=== PATIENT | female | born 1985 | race Caucasian/White ===

== ENCOUNTER 2016-08-02 13:58 | Emergency (ER) | payer OTHER ==
--- NOTE | 2016-08-02 14:12 | ED NURSING NOTES ---
Clinical Report - Nurses [facility] [address] [place] [address] 08/02/2016 13:59 Patient: GA RAMACHANDRAN TRIAGE Triage time 1405. Acuity: LEVEL 4. Chief Complaint: SKIN RASH and TENDER AREA and INSECT BITE 14:05. --14:12 Yari Smith R.N. 14:05 08/02/16. BP: 132/91. HR: 102. RR: 20. O2 saturation: 97%. Temp: 98.1 F. Pain level now: 10/15. --14:12 Yari Smith R.N. Chief Complaint: right foot swelling and redness- states possible spider bite. --14:15 Yari Smith R.N. Weight: 72.5 kg stated. Height/Length: 66 inches Per Patient. BMI: 25.8. --14:10 Yari Smith R.N. Medications None. --14:10 Yari Smith R.N. Allergies Hydrocodone. (ghi upset) --14:10 Yari Smith R.N. History Arrived by private vehicle. Historian: patient. Accompanied by sister. No primary care physician. Reported as located on the right foot. This started last night. It is described as burning and painful. PAST MEDICAL HX: Immunizations: up-to-date. SOCIAL HX: Heavy tobacco smoker (cigarette)- less than 1 pack per day. History of drug use: methamphetamines. No alcohol use. --14:12 Yari Smith R.N. PROBLEMS: Anxiety Reaction. TMJ Syndrome. Laryngitis. Tonsillitis. Peritonsillar Abscess. Strep Throat. --14:10 Yari Smith R.N. ADDITIONAL SURGERIES: Laparoscopy. --14:10 Yari Smith R.N. Interventions ID band on patient. To treatment room. --14:12 Yari Smith R.N. PHYSICAL ASSESSMENT Patient gowned. GENERAL / NEURO / PSYCH: Alert. Appears in pain. Oriented X 4. HEENT: Mucous membranes are pink. RESPIRATORY: Respirations not labored. CVS: Capillary refill less than 2 seconds. SKIN: Skin tenderness present. Swelling present. Increased warmth present. Erythema present. No drainage. --14:14 Yari Smith R.N. NURSING PROGRESS NOTES 14:05. Reassurance given. Patient identifiers checked. Call light placed in reach. Side rails up. Bed placed in lowest position. Patient ready for evaluation- chart flagged and notification provided. --14:13 Yari Smith R.N. 14:15. Wound cleansed with water and Hibiclens. Applied clean dressing. Secured with tape and kerlix. --14:29 Yari Smith R.N. 14:15 08/02/2016 Percocet (Oxycodone-Acetaminophen) PO 5/325 mg Tablets 1 tab given. Allergies verified, confirmed 5 rights and sedative warning given to the patient. --14:30 Yari Smith R.N. 14:15 08/02/2016 Bactrim DS (Sulfamethoxazole-TMP DS) PO Tablets 1 tab given. Allergies verified and confirmed 5 rights. --14:30 Yari Smith R.N. 14:15 08/02/2016 Keflex (Cephalexin) PO Tablets 500 mg given. Allergies verified and confirmed 5 rights. --14:30 Yari Smith R.N. DISPOSITION / DISCHARGE 14:26. Condition at departure: stable. No learning barriers present. Discharge instructions provided and reviewed with the patient. Reviewed medication(s) (keflex, percocet, bactrim). Patient verbalized understanding. Written instructions provided in [place]. The patient was discharged home and accompanied by family. She left the Emergency Department on crutches and via private vehicle. Driving (sister). --14:33 Yari Smith R.N. 14:26 08/02/16. BP: 128/84. HR: 92. RR: 20. O2 saturation: 98% on room air. Temp: deferred. Pain level now: 810. --14:33 Yari Smith R.N. Locked/Released at 08/02/2016 14:33 by LuisYari R.N.
--- NOTE | 2016-08-02 14:12 | ED CLINICAL REPORT ---
Clinical Report - Physicians/Mid Levels [facility] [address] [place] [address] 08/02/2016 13:59 Patient: GA RAMACHANDRAN Time Seen: 14:10 Aug 02 2016. Arrived- By private vehicle. Historian- patient. HISTORY OF PRESENT ILLNESS Chief Complaint: SKIN RASH. This started just prior to arrival and is still present. It is described as painful. It has been located on the right lower extremity. A possible cause has been identified (spider bite?). (patient reports possibly stepping on something yesterday, and having swelling today. Denies fevers or chills. Denies any direct trauma. Reports had a Tetanus immunization within the last 10 years. Patient smokes meth, occasionally injects into her upper extremity. Denies injecting to the site. Denies history of MRSA.). REVIEW OF SYSTEMS No fever, chills, cough, hoarseness or nausea. All systems otherwise negative, except as recorded above. PAST HISTORY Tetanus immunization status is up-to-date. SOCIAL HISTORY Current every day heavy tobacco smoker. History of drug use: methamphetamines. No alcohol use. ADDITIONAL NOTES The nursing notes have been reviewed. PHYSICAL EXAM Vital Signs: 08/02/2016 14:05 BP: 132/91. HR: 102. RR: 20. O2 saturation: 97%. Temp: 98.1 F. Pain level now: 8/10. Neck: Neck supple. CVS: Normal heart rate and rhythm. Respiratory: No respiratory distress. Breath sounds normal. Skin: Normal skin color. Erythema (r. dorsal foot 4 by 3 area of erythema/ warmth, no fluctulance.). Tender indurated area. Cellulitis. Extremities: Soft tissue tenderness present (r. dorsal foot, good distal sensation, good dorsalis pedal pulse.). Neuro: Oriented X 3. PROGRESS AND PROCEDURES Course of Care: Patient was signs of erythema on the left foot. Patient with tetanus immunization is up-to-date. Afebrile. No palpable abscess. Good distal sensation. No trauma history. Incidental sometimes for hours. Patient is stable. The patient's symptoms are unchanged. Patient/family counseled. Disposition: Discharged. CLINICAL IMPRESSION Cellulitis of the right foot. INSTRUCTIONS (elevate foot Warm packs start antibiotics). Warnings: Further evaluation is necessary (for wound eval if no improvement in 3-4 days). It is very important to follow up with a physician. Prescription Medications: Bactrim DS 800 mg / 160 mg: take 1 tablet orally every 12 hours for 10 days. No refill. Substitution is permissible. Keflex 500 mg: take 1 capsule orally every 8 hours for 10 days. No refill. Substitution is permissible. Percocet 5 mg/325 mg: take 1 tablet orally every 6 hours as needed for pain. Dispense five (5). No refill. Follow-up: Follow up with your doctor in three days. (Electronically signed by Cass Wray P.A.-C 08/02/2016 14:38)
--- NOTE | 2016-08-02 14:12 | ED CLINICAL REPORT ---
Clinical Report - Physicians/Mid Levels [facility] [address] [place] [address] 08/02/2016 13:59 Patient: GA RAMACHANDRAN Time Seen: 14:10 Aug 02 2016. Arrived- By private vehicle. Historian- patient. HISTORY OF PRESENT ILLNESS Chief Complaint: SKIN RASH. This started just prior to arrival and is still present. It is described as painful. It has been located on the right lower extremity. A possible cause has been identified (spider bite?). (patient reports possibly stepping on something yesterday, and having swelling today. Denies fevers or chills. Denies any direct trauma. Reports had a Tetanus immunization within the last 10 years. Patient smokes meth, occasionally injects into her upper extremity. Denies injecting to the site. Denies history of MRSA.). REVIEW OF SYSTEMS No fever, chills, cough, hoarseness or nausea. All systems otherwise negative, except as recorded above. PAST HISTORY Tetanus immunization status is up-to-date. SOCIAL HISTORY Current every day heavy tobacco smoker. History of drug use: methamphetamines. No alcohol use. ADDITIONAL NOTES The nursing notes have been reviewed. PHYSICAL EXAM Vital Signs: 08/02/2016 14:05 BP: 132/91. HR: 102. RR: 20. O2 saturation: 97%. Temp: 98.1 F. Pain level now: 8/10. Neck: Neck supple. CVS: Normal heart rate and rhythm. Respiratory: No respiratory distress. Breath sounds normal. Skin: Normal skin color. Erythema (r. dorsal foot 4 by 3 area of erythema/ warmth, no fluctulance.). Tender indurated area. Cellulitis. Extremities: Soft tissue tenderness present (r. dorsal foot, good distal sensation, good dorsalis pedal pulse.). Neuro: Oriented X 3. PROGRESS AND PROCEDURES Course of Care: Patient was signs of erythema on the left foot. Patient with tetanus immunization is up-to-date. Afebrile. No palpable abscess. Good distal sensation. No trauma history. Incidental sometimes for hours. Patient is stable. The patient's symptoms are unchanged. Patient/family counseled. Disposition: Discharged. CLINICAL IMPRESSION Cellulitis of the right foot. INSTRUCTIONS (elevate foot Warm packs start antibiotics). Warnings: Further evaluation is necessary (for wound eval if no improvement in 3-4 days). It is very important to follow up with a physician. Prescription Medications: Bactrim DS 800 mg / 160 mg: take 1 tablet orally every 12 hours for 10 days. No refill. Substitution is permissible. Keflex 500 mg: take 1 capsule orally every 8 hours for 10 days. No refill. Substitution is permissible. Percocet 5 mg/325 mg: take 1 tablet orally every 6 hours as needed for pain. Dispense five (5). No refill. Follow-up: Follow up with your doctor in three days. (Electronically signed by Cass Wray P.A.-C 08/02/2016 14:38)
--- NOTE | 2016-08-02 14:12 | ED ORDER SUMMARY ---
..... Patient: GA RAMACHANDRAN OrderSheet [facility] VisitID: [id number] [address] [place] [address] 31y, F Registration Date/Time: 08/02/2016 ORDER SHEET Weight: 72.5 kg (stated) Allergies: Hydrocodone GENERAL ORDERS: MEDICATION ORDERS: Percocet PO 5/325 mg (HIGH ALERT MEDICATION, NOW) (14:11 08/02/2016 EKoroleioana P.A.-C) (Ack 14:14 DDean R.N.) (14:30 DDean R.N.) Bactrim DS PO (Tablet 800-160 mg) 1 tab (NOW) (14:11 08/02/2016 Suzanneleioana P.A.-C) (Ack 14:14 DDean R.N.) (14:30 DDean R.N.) Keflex PO 500 mg (NOW) (14:11 08/02/2016 Suzanneleioana P.A.-C) (Ack 14:14 DDean R.N.) (14:30 DDean R.N.) IV FLUIDS: ORDER SHEET NOTES: [Electronically signed by Yari Smith R.N. (14:33 08/02/2016)] [Electronically signed by Cass Wray PZeeshanA.-C (14:38 08/02/2016)] [Electronically locked/signed by Yari Smith R.N. (14:33 08/02/2016)]
--- NOTE | 2016-08-02 14:12 | ED NURSING NOTES ---
Clinical Report - Nurses [facility] [address] [place] [address] 08/02/2016 13:59 Patient: GA RAMACHANDRAN TRIAGE Triage time 1405. Acuity: LEVEL 4. Chief Complaint: SKIN RASH and TENDER AREA and INSECT BITE 14:05. --14:12 Yari Smith R.N. 14:05 08/02/16. BP: 132/91. HR: 102. RR: 20. O2 saturation: 97%. Temp: 98.1 F. Pain level now: 10/15. --14:12 Yari Smith R.N. Chief Complaint: right foot swelling and redness- states possible spider bite. --14:15 Yari Smith R.N. Weight: 72.5 kg stated. Height/Length: 66 inches Per Patient. BMI: 25.8. --14:10 Yari Smith R.N. Medications None. --14:10 Yari Smith R.N. Allergies Hydrocodone. (ghi upset) --14:10 Yari Smith R.N. History Arrived by private vehicle. Historian: patient. Accompanied by sister. No primary care physician. Reported as located on the right foot. This started last night. It is described as burning and painful. PAST MEDICAL HX: Immunizations: up-to-date. SOCIAL HX: Heavy tobacco smoker (cigarette)- less than 1 pack per day. History of drug use: methamphetamines. No alcohol use. --14:12 Yari Smith R.N. PROBLEMS: Anxiety Reaction. TMJ Syndrome. Laryngitis. Tonsillitis. Peritonsillar Abscess. Strep Throat. --14:10 Yari Smith R.N. ADDITIONAL SURGERIES: Laparoscopy. --14:10 Yari Smith R.N. Interventions ID band on patient. To treatment room. --14:12 Yari Smith R.N. PHYSICAL ASSESSMENT Patient gowned. GENERAL / NEURO / PSYCH: Alert. Appears in pain. Oriented X 4. HEENT: Mucous membranes are pink. RESPIRATORY: Respirations not labored. CVS: Capillary refill less than 2 seconds. SKIN: Skin tenderness present. Swelling present. Increased warmth present. Erythema present. No drainage. --14:14 Yari Smith R.N. NURSING PROGRESS NOTES 14:05. Reassurance given. Patient identifiers checked. Call light placed in reach. Side rails up. Bed placed in lowest position. Patient ready for evaluation- chart flagged and notification provided. --14:13 Yari Smith R.N. 14:15. Wound cleansed with water and Hibiclens. Applied clean dressing. Secured with tape and kerlix. --14:29 Yari Smith R.N. 14:15 08/02/2016 Percocet (Oxycodone-Acetaminophen) PO 5/325 mg Tablets 1 tab given. Allergies verified, confirmed 5 rights and sedative warning given to the patient. --14:30 Yari Smith R.N. 14:15 08/02/2016 Bactrim DS (Sulfamethoxazole-TMP DS) PO Tablets 1 tab given. Allergies verified and confirmed 5 rights. --14:30 Yari Smith R.N. 14:15 08/02/2016 Keflex (Cephalexin) PO Tablets 500 mg given. Allergies verified and confirmed 5 rights. --14:30 Yari Smith R.N. DISPOSITION / DISCHARGE 14:26. Condition at departure: stable. No learning barriers present. Discharge instructions provided and reviewed with the patient. Reviewed medication(s) (keflex, percocet, bactrim). Patient verbalized understanding. Written instructions provided in [place]. The patient was discharged home and accompanied by family. She left the Emergency Department on crutches and via private vehicle. Driving (sister). --14:33 Yari Smith R.N. 14:26 08/02/16. BP: 128/84. HR: 92. RR: 20. O2 saturation: 98% on room air. Temp: deferred. Pain level now: 810. --14:33 Yari Smith R.N. Locked/Released at 08/02/2016 14:33 by LuisYari R.N.
--- NOTE | 2016-08-02 14:12 | ED ORDER SUMMARY ---
..... Patient: GA RAMACHANDRAN OrderSheet [facility] VisitID: [id number] [address] [place] [address] 31y, F Registration Date/Time: 08/02/2016 ORDER SHEET Weight: 72.5 kg (stated) Allergies: Hydrocodone GENERAL ORDERS: MEDICATION ORDERS: Percocet PO 5/325 mg (HIGH ALERT MEDICATION, NOW) (14:11 08/02/2016 EKoroleioana P.A.-C) (Ack 14:14 DDean R.N.) (14:30 DDean R.N.) Bactrim DS PO (Tablet 800-160 mg) 1 tab (NOW) (14:11 08/02/2016 Suzanneleioana P.A.-C) (Ack 14:14 DDean R.N.) (14:30 DDean R.N.) Keflex PO 500 mg (NOW) (14:11 08/02/2016 Suzanneleioana P.A.-C) (Ack 14:14 DDean R.N.) (14:30 DDean R.N.) IV FLUIDS: ORDER SHEET NOTES: [Electronically signed by Yari Smith R.N. (14:33 08/02/2016)] [Electronically signed by Cass Wray PZeeshanA.-C (14:38 08/02/2016)] [Electronically locked/signed by Yari Smith R.N. (14:33 08/02/2016)]
--- NOTE | 2016-08-02 14:38 | ED MED RECONCILIATION SUMMARY ---
Patient: GA RAMACHANDRAN Medication Reconciliation Report [facility] VisitID: [id number] [address] [place] [address] 31y, F Registration Date/Time: 08/02/2016 Weight: 72.5 kg Height/Length: 66 in. BMI: 25.8 ALLERGIES: Hydrocodone The patient's Home Medications are listed below: NONE. The source(s) of the original Home Medication information: Not obtained. The following Medications were given to the patient in the Emergency Department: Percocet [PO] PO 1 tab, administered: 08/02/2016 2:15:00 PM Bactrim DS [PO] PO 1 tab, administered: 08/02/2016 2:15:00 PM Keflex [PO] PO 500 mg, administered: 08/02/2016 2:15:00 PM The following Medications were prescribed to the patient: Bactrim DS 800 mg / 160 mg: take 1 tablet orally every 12 hours for 10 days. No refill. Substitution is permissible. -- Cass Wray, P.A.-C Keflex 500 mg: take 1 capsule orally every 8 hours for 10 days. No refill. Substitution is permissible. -- Cass Wray, P.A.-C Percocet 5 mg/325 mg: take 1 tablet orally every 6 hours as needed for pain. Dispense five (5). No refill. -- Cass Wray, P.A.-C
--- NOTE | 2016-08-02 14:38 | ED DISCHARGE INSTRUCTIONS ---
Patient: GA RAMACHANDRAN General Instructions [facility] VisitID: [id number] [place] [address] 31y, F Registration Date/Time: 08/02/2016 Cellulitis of the right foot. INSTRUCTIONS (elevate foot Warm packs start antibiotics). Warnings: Further evaluation is necessary (for wound eval if no improvement in 3-4 days). It is very important to follow up with a physician. Prescription Medications: Bactrim DS 800 mg / 160 mg: take 1 tablet orally every 12 hours for 10 days. No refill. Substitution is permissible. Keflex 500 mg: take 1 capsule orally every 8 hours for 10 days. No refill. Substitution is permissible. Percocet 5 mg/325 mg: take 1 tablet orally every 6 hours as needed for pain. Dispense five (5). No refill. Follow-up: Follow up with your doctor in three days. ADDITIONAL INFORMATION Cellulitis You have an infection of the skin known as cellulitis. This usually starts with a scrape, cut, insect bite, blister or other opening in the skin which becomes infected. This is a serious condition. It must be watched closely to be sure the infection is not spreading. With antibiotic treatment, the size of the red area will gradually shrink in size until the skin returns to normal. This will take 7-10 days. The red area should never increase in size once the antibiotic medicine has been started. Occasionally, an infection will be resistant to one antibiotic and another one will have to be used. Home Care: 1) Limit the use of the affected part, since excess movement can cause the infection to spread. 2) If the infection is on your leg, walk as little as possible during the first few days of the treatment. Keep your leg elevated while sitting. This will reduce swelling. 3) Take all of the antibiotic medicine exactly as directed until it is gone. Be careful not to miss any doses, especially during the first seven days. Follow Up with your doctor or this facility as directed. Check the infected area daily for the warning signs listed below. Get Prompt Medical Attention if any of the following occur: -- Spreading area of redness -- Increasing swelling or pain -- Appearance of pus or drainage -- Fever over 100.4 F (38.0 C) oral, or over 101.4 F (38.6 C) rectal, after two days on antibiotics Sulfamethoxazole, Trimethoprim Oral tablet What is this medicine? SULFAMETHOXAZOLE; TRIMETHOPRIM or SMX-TMP (suhl fuh meth OK nina zohl; trye METH oh prim) is a combination of a sulfonamide antibiotic and a second antibiotic, trimethoprim. It is used to treat or prevent certain kinds of bacterial infections. It will not work for colds, flu, or other viral infections. How should I use this medicine? Take this medicine by mouth with a full glass of water. Follow the directions on the prescription label. Take your medicine at regular intervals. Do not take it more often than directed. Do not skip doses or stop your medicine early. Talk to your tobacco drying machine operator regarding the use of this medicine in children. Special care may be needed. This medicine has been used in children as young as 2 months of age. What side effects may I notice from receiving this medicine? Side effects that you should report to your doctor or health manager intensive care unit as soon as possible: allergic reactions like skin rash or hives, swelling of the face, lips, or tongue breathing problems fever or chills, sore throat irregular heartbeat, chest pain joint or muscle pain pain or difficulty passing urine red pinpoint spots on skin redness, blistering, peeling or loosening of the skin, including inside the mouth unusual bleeding or bruising unusually weak or tired yellowing of the eyes or skin Side effects that usually do not require medical attention (report to your doctor or health manager intensive care unit if they continue or are bothersome): diarrhea dizziness headache loss of appetite nausea, vomiting nervousness What may interact with this medicine? Do not take this medicine with any of the following medications: aminobenzoate potassium dofetilide metronidazole This medicine may also interact with the following medications: EVI inhibitors like benazepril, enalapril, lisinopril, and ramipril cyclosporine digoxin diuretics indomethacin medicines for diabetes methenamine methotrexate phenytoin potassium supplements pyrimethamine sulfinpyrazone tricyclic antidepressants warfarin What if I miss a dose? If you miss a dose, take it as soon as you can. If it is almost time for your next dose, take only that dose. Do not take double or extra doses. Where should I keep my medicine? Keep out of the reach of children. Store at room temperature between 20 to 25 degrees C (68 to 77 degrees F). Protect from light. Throw away any unused medicine after the expiration date. What should I tell my health care provider before I take this medicine? They need to know if you have any of these conditions: anemia asthma being treated with anticonvulsants if you frequently drink alcohol containing drinks kidney disease liver disease low level of folic acid or [id number] dehydrogenase poor nutrition or malabsorption porphyria severe allergies thyroid disorder an unusual or allergic reaction to sulfamethoxazole, trimethoprim, sulfa drugs, other medicines, foods, dyes, or preservatives or trying to get breast-feeding What should I watch for while using this medicine? Tell your doctor or health manager intensive care unit if your symptoms do not improve. Drink several glasses of water a day to reduce the risk of kidney problems. Do not treat diarrhea with over the counter products. Contact your doctor if you have diarrhea that lasts more than 2 days or if it is severe and watery. This medicine can make you more sensitive to the sun. Keep out of the sun. If you cannot avoid being in the sun, wear protective clothing and use a sunscreen. Do not use sun lamps or tanning beds/booths. Cephalexin Monohydrate Oral tablet What is this medicine? CEPHALEXIN (sef a BELEN in) is a cephalosporin antibiotic. It is used to treat certain kinds of bacterial infections It will not work for colds, flu, or other viral infections. How should I use this medicine? Take this medicine by mouth with a full glass of water. Follow the directions on the prescription label. This medicine can be taken with or without food. Take your medicine at regular intervals. Do not take your medicine more often than directed. Take all of your medicine as directed even if you think you are better. Do not skip doses or stop your medicine early. Talk to your tobacco drying machine operator regarding the use of this medicine in children. While this drug may be prescribed for selected conditions, precautions do apply. What side effects may I notice from receiving this medicine? Side effects that you should report to your doctor or health manager intensive care unit as soon as possible: allergic reactions like skin rash, itching or hives, swelling of the face, lips, or tongue breathing problems pain or trouble passing urine redness, blistering, peeling or loosening of the skin, including inside the mouth severe or watery diarrhea unusually weak or tired yellowing of the eyes, skin Side effects that usually do not require medical attention (report to your doctor or health manager intensive care unit if they continue or are bothersome): gas or heartburn genital or anal irritation headache joint or muscle pain nausea, vomiting What may interact with this medicine? probenecid some other antibiotics What if I miss a dose? If you miss a dose, take it as soon as you can. If it is almost time for your next dose, take only that dose. Do not take double or extra doses. There should be at least 4 to 6 hours between doses. Where should I keep my medicine? Keep out of the reach of children. Store at room temperature between 59 and 86 degrees F (15 and 30 degrees C). Throw away any unused medicine after the expiration date. What should I tell my health care provider before I take this medicine? They need to know if you have any of these conditions: kidney disease stomach or intestine problems, especially colitis an unusual or allergic reaction to cephalexin, other cephalosporins, penicillins, other antibiotics, medicines, foods, dyes or preservatives or trying to get breast-feeding What should I watch for while using this medicine? Tell your doctor or health manager intensive care unit if your symptoms do not begin to improve in a few days. Do not treat diarrhea with over the counter products. Contact your doctor if you have diarrhea that lasts more than 2 days or if it is severe and watery. If you have diabetes, you may get a false-positive result for sugar in your urine. Check with your doctor or health manager intensive care unit. Oxycodone Hydrochloride, Acetaminophen Oral tablet What is this medicine? ACETAMINOPHEN; OXYCODONE (a set a YAHIR sriram fen; ox i KOE done) is a pain reliever. It is used to treat mild to moderate pain. How should I use this medicine? Take this medicine by mouth with a full glass of water. Follow the directions on the prescription label. Take your medicine at regular intervals. Do not take your medicine more often than directed. Talk to your tobacco drying machine operator regarding the use of this medicine in children. Special care may be needed. Patients over 65 years old may have a stronger reaction and need a smaller dose. What side effects may I notice from receiving this medicine? Side effects that you should report to your doctor or health manager intensive care unit as soon as possible: allergic reactions like skin rash, itching or hives, swelling of the face, lips, or tongue breathing difficulties, wheezing confusion light headedness or fainting spells severe stomach pain yellowing of the skin or the whites of the eyes Side effects that usually do not require medical attention (report to your doctor or health manager intensive care unit if they continue or are bothersome): dizziness drowsiness nausea vomiting What may interact with this medicine? alcohol antihistamines barbiturates like amobarbital, butalbital, butabarbital, methohexital, pentobarbital, phenobarbital, thiopental, and secobarbital benztropine drugs for bladder problems like solifenacin, trospium, oxybutynin, tolterodine, hyoscyamine, and methscopolamine drugs for breathing problems like ipratropium and tiotropium drugs for certain stomach or intestine problems like propantheline, homatropine methylbromide, glycopyrrolate, atropine, belladonna, and dicyclomine general anesthetics like etomidate, ketamine, nitrous oxide, propofol, desflurane, enflurane, halothane, isoflurane, and sevoflurane medicines for depression, anxiety, or psychotic disturbances medicines for sleep muscle relaxants naltrexone narcotic medicines (opiates) for pain phenothiazines like perphenazine, thioridazine, chlorpromazine, mesoridazine, fluphenazine, prochlorperazine, promazine, and trifluoperazine scopolamine tramadol trihexyphenidyl What if I miss a dose? If you miss a dose, take it as soon as you can. If it is almost time for your next dose, take only that dose. Do not take double or extra doses. Where should I keep my medicine? Keep out of the reach of children. This medicine can be abused. Keep your medicine in a safe place to protect it from theft. Do not share this medicine with anyone. Selling or giving away this medicine is dangerous and against the law. Store at room temperature between 20 and 25 degrees C (68 and 77 degrees F). Keep container tightly closed. Protect from light. This medicine may cause accidental overdose and if it is taken by other adults, children, or pets. Flush any unused medicine down the toilet to reduce the chance of harm. Do not use the medicine after the expiration date. What should I tell my health care provider before I take this medicine? They need to know if you have any of these conditions: brain tumor Crohn's disease, inflammatory bowel disease, or ulcerative colitis drink more than 3 alcohol containing drinks per day drug abuse or addiction head injury heart or circulation problems kidney disease or problems going to the bathroom liver disease lung disease, asthma, or breathing problems an unusual or allergic reaction to acetaminophen, oxycodone, other opioid analgesics, other medicines, foods, dyes, or preservatives or trying to get breast-feeding What should I watch for while using this medicine? Tell your doctor or health manager intensive care unit if your pain does not go away, if it gets worse, or if you have new or a different type of pain. You may develop tolerance to the medicine. Tolerance means that you will need a higher dose of the medication for pain relief. Tolerance is normal and is expected if you take this medicine for a long time. Do not suddenly stop taking your medicine because you may develop a severe reaction. Your body becomes used to the medicine. This does NOT mean you are addicted. Addiction is a behavior related to getting and using a drug for a non-medical reason. If you have pain, you have a medical reason to take pain medicine. Your doctor will tell you how much medicine to take. If your doctor wants you to stop the medicine, the dose will be slowly lowered over time to avoid any side effects. You may get drowsy or dizzy. Do not drive, use machinery, or do anything that needs mental alertness until you know how this medicine affects you. Do not stand or sit up quickly, especially if you are an older patient. This reduces the risk of dizzy or fainting spells. Alcohol may interfere with the effect of this medicine. Avoid alcoholic drinks. There are different types of narcotic medicines (opiates) for pain. If you take more than one type at the same time, you may have more side effects. Give your health care provider a list of all medicines you use. Your doctor will tell you how much medicine to take. Do not take more medicine than directed. Call emergency for help if you have problems breathing. The medicine will cause constipation. Try to have a bowel movement at least every 2 to 3 days. If you do not have a bowel movement for 3 days, call your doctor or health manager intensive care unit. Do not take Tylenol (acetaminophen) or medicines that have acetaminophen with this medicine. Too much acetaminophen can be very dangerous. Many nonprescription medicines contain acetaminophen. Always read the labels carefully to avoid taking more acetaminophen. You have been given the following additional information: Cellulitis Sulfamethoxazole, Trimethoprim Oral tablet Cephalexin Monohydrate Oral tablet Oxycodone Hydrochloride, Acetaminophen Oral tablet (Electronically signed by Cass Wray P.A.-C 08/02/2016 14:38)
--- NOTE | 2016-08-02 14:38 | ED MED RECONCILIATION SUMMARY ---
Patient: GA RAMACHANDRAN Medication Reconciliation Report [facility] VisitID: [id number] [address] [place] [address] 31y, F Registration Date/Time: 08/02/2016 Weight: 72.5 kg Height/Length: 66 in. BMI: 25.8 ALLERGIES: Hydrocodone The patient's Home Medications are listed below: NONE. The source(s) of the original Home Medication information: Not obtained. The following Medications were given to the patient in the Emergency Department: Percocet [PO] PO 1 tab, administered: 08/02/2016 2:15:00 PM Bactrim DS [PO] PO 1 tab, administered: 08/02/2016 2:15:00 PM Keflex [PO] PO 500 mg, administered: 08/02/2016 2:15:00 PM The following Medications were prescribed to the patient: Bactrim DS 800 mg / 160 mg: take 1 tablet orally every 12 hours for 10 days. No refill. Substitution is permissible. -- Cass Wray, P.A.-C Keflex 500 mg: take 1 capsule orally every 8 hours for 10 days. No refill. Substitution is permissible. -- Cass Wray, P.A.-C Percocet 5 mg/325 mg: take 1 tablet orally every 6 hours as needed for pain. Dispense five (5). No refill. -- Cass Wray, P.A.-C
--- NOTE | 2016-08-02 14:38 | ED MAR SUMMARY ---
..... Medication Administration Record [facility] [address] [place] [address] Patient: GA RAMACHANDRAN Visit ID: [id number] 31y, F Weight: 72.5 kg Height/Length: 66 in BMI: 25.8 ALLERGIES: Hydrocodone Given 14:08/02/2016 Yari Smith R.N. Medication Administered: PERCOCET [PO] (OXYCODONE-ACETAMINOPHEN), Dose: 1 tab 5/325 mg Tablets PO. Medication Ordered: Percocet PO 5/325 mg (HIGH ALERT MEDICATION, NOW). Given 14:08/02/2016 Yari Smith R.N. Medication Administered: BACTRIM DS [PO] (SULFAMETHOXAZOLE-TMP DS), Dose: 1 tab Tablets PO. Medication Ordered: Bactrim DS PO (Tablet 800-160 mg) 1 tab (NOW). Given 14:08/02/2016 Yari Smith R.N. Medication Administered: KEFLEX [PO] (CEPHALEXIN), Dose: 500 mg Tablets PO. Medication Ordered: Keflex PO 500 mg (NOW).
--- NOTE | 2016-08-02 14:38 | ED MAR SUMMARY ---
..... Medication Administration Record [facility] [address] [place] [address] Patient: GA RAMACHANDRAN Visit ID: [id number] 31y, F Weight: 72.5 kg Height/Length: 66 in BMI: 25.8 ALLERGIES: Hydrocodone Given 14:08/02/2016 Yari Smith R.N. Medication Administered: PERCOCET [PO] (OXYCODONE-ACETAMINOPHEN), Dose: 1 tab 5/325 mg Tablets PO. Medication Ordered: Percocet PO 5/325 mg (HIGH ALERT MEDICATION, NOW). Given 14:08/02/2016 Yari Smith R.N. Medication Administered: BACTRIM DS [PO] (SULFAMETHOXAZOLE-TMP DS), Dose: 1 tab Tablets PO. Medication Ordered: Bactrim DS PO (Tablet 800-160 mg) 1 tab (NOW). Given 14:08/02/2016 Yari Smith R.N. Medication Administered: KEFLEX [PO] (CEPHALEXIN), Dose: 500 mg Tablets PO. Medication Ordered: Keflex PO 500 mg (NOW).
--- NOTE | 2016-08-02 14:38 | ED DISCHARGE INSTRUCTIONS ---
Patient: GA RAMACHANDRAN General Instructions [facility] VisitID: [id number] [place] [address] 31y, F Registration Date/Time: 08/02/2016 Cellulitis of the right foot. INSTRUCTIONS (elevate foot Warm packs start antibiotics). Warnings: Further evaluation is necessary (for wound eval if no improvement in 3-4 days). It is very important to follow up with a physician. Prescription Medications: Bactrim DS 800 mg / 160 mg: take 1 tablet orally every 12 hours for 10 days. No refill. Substitution is permissible. Keflex 500 mg: take 1 capsule orally every 8 hours for 10 days. No refill. Substitution is permissible. Percocet 5 mg/325 mg: take 1 tablet orally every 6 hours as needed for pain. Dispense five (5). No refill. Follow-up: Follow up with your doctor in three days. ADDITIONAL INFORMATION Cellulitis You have an infection of the skin known as cellulitis. This usually starts with a scrape, cut, insect bite, blister or other opening in the skin which becomes infected. This is a serious condition. It must be watched closely to be sure the infection is not spreading. With antibiotic treatment, the size of the red area will gradually shrink in size until the skin returns to normal. This will take 7-10 days. The red area should never increase in size once the antibiotic medicine has been started. Occasionally, an infection will be resistant to one antibiotic and another one will have to be used. Home Care: 1) Limit the use of the affected part, since excess movement can cause the infection to spread. 2) If the infection is on your leg, walk as little as possible during the first few days of the treatment. Keep your leg elevated while sitting. This will reduce swelling. 3) Take all of the antibiotic medicine exactly as directed until it is gone. Be careful not to miss any doses, especially during the first seven days. Follow Up with your doctor or this facility as directed. Check the infected area daily for the warning signs listed below. Get Prompt Medical Attention if any of the following occur: -- Spreading area of redness -- Increasing swelling or pain -- Appearance of pus or drainage -- Fever over 100.4 F (38.0 C) oral, or over 101.4 F (38.6 C) rectal, after two days on antibiotics Sulfamethoxazole, Trimethoprim Oral tablet What is this medicine? SULFAMETHOXAZOLE; TRIMETHOPRIM or SMX-TMP (suhl fuh meth OK nina zohl; trye METH oh prim) is a combination of a sulfonamide antibiotic and a second antibiotic, trimethoprim. It is used to treat or prevent certain kinds of bacterial infections. It will not work for colds, flu, or other viral infections. How should I use this medicine? Take this medicine by mouth with a full glass of water. Follow the directions on the prescription label. Take your medicine at regular intervals. Do not take it more often than directed. Do not skip doses or stop your medicine early. Talk to your weatherization operations manager regarding the use of this medicine in children. Special care may be needed. This medicine has been used in children as young as 2 months of age. What side effects may I notice from receiving this medicine? Side effects that you should report to your doctor or health health care facilities inspector as soon as possible: allergic reactions like skin rash or hives, swelling of the face, lips, or tongue breathing problems fever or chills, sore throat irregular heartbeat, chest pain joint or muscle pain pain or difficulty passing urine red pinpoint spots on skin redness, blistering, peeling or loosening of the skin, including inside the mouth unusual bleeding or bruising unusually weak or tired yellowing of the eyes or skin Side effects that usually do not require medical attention (report to your doctor or health health care facilities inspector if they continue or are bothersome): diarrhea dizziness headache loss of appetite nausea, vomiting nervousness What may interact with this medicine? Do not take this medicine with any of the following medications: aminobenzoate potassium dofetilide metronidazole This medicine may also interact with the following medications: EVI inhibitors like benazepril, enalapril, lisinopril, and ramipril cyclosporine digoxin diuretics indomethacin medicines for diabetes methenamine methotrexate phenytoin potassium supplements pyrimethamine sulfinpyrazone tricyclic antidepressants warfarin What if I miss a dose? If you miss a dose, take it as soon as you can. If it is almost time for your next dose, take only that dose. Do not take double or extra doses. Where should I keep my medicine? Keep out of the reach of children. Store at room temperature between 20 to 25 degrees C (68 to 77 degrees F). Protect from light. Throw away any unused medicine after the expiration date. What should I tell my health care provider before I take this medicine? They need to know if you have any of these conditions: anemia asthma being treated with anticonvulsants if you frequently drink alcohol containing drinks kidney disease liver disease low level of folic acid or [id number] dehydrogenase poor nutrition or malabsorption porphyria severe allergies thyroid disorder an unusual or allergic reaction to sulfamethoxazole, trimethoprim, sulfa drugs, other medicines, foods, dyes, or preservatives or trying to get breast-feeding What should I watch for while using this medicine? Tell your doctor or health health care facilities inspector if your symptoms do not improve. Drink several glasses of water a day to reduce the risk of kidney problems. Do not treat diarrhea with over the counter products. Contact your doctor if you have diarrhea that lasts more than 2 days or if it is severe and watery. This medicine can make you more sensitive to the sun. Keep out of the sun. If you cannot avoid being in the sun, wear protective clothing and use a sunscreen. Do not use sun lamps or tanning beds/booths. Cephalexin Monohydrate Oral tablet What is this medicine? CEPHALEXIN (sef a BELEN in) is a cephalosporin antibiotic. It is used to treat certain kinds of bacterial infections It will not work for colds, flu, or other viral infections. How should I use this medicine? Take this medicine by mouth with a full glass of water. Follow the directions on the prescription label. This medicine can be taken with or without food. Take your medicine at regular intervals. Do not take your medicine more often than directed. Take all of your medicine as directed even if you think you are better. Do not skip doses or stop your medicine early. Talk to your weatherization operations manager regarding the use of this medicine in children. While this drug may be prescribed for selected conditions, precautions do apply. What side effects may I notice from receiving this medicine? Side effects that you should report to your doctor or health health care facilities inspector as soon as possible: allergic reactions like skin rash, itching or hives, swelling of the face, lips, or tongue breathing problems pain or trouble passing urine redness, blistering, peeling or loosening of the skin, including inside the mouth severe or watery diarrhea unusually weak or tired yellowing of the eyes, skin Side effects that usually do not require medical attention (report to your doctor or health health care facilities inspector if they continue or are bothersome): gas or heartburn genital or anal irritation headache joint or muscle pain nausea, vomiting What may interact with this medicine? probenecid some other antibiotics What if I miss a dose? If you miss a dose, take it as soon as you can. If it is almost time for your next dose, take only that dose. Do not take double or extra doses. There should be at least 4 to 6 hours between doses. Where should I keep my medicine? Keep out of the reach of children. Store at room temperature between 59 and 86 degrees F (15 and 30 degrees C). Throw away any unused medicine after the expiration date. What should I tell my health care provider before I take this medicine? They need to know if you have any of these conditions: kidney disease stomach or intestine problems, especially colitis an unusual or allergic reaction to cephalexin, other cephalosporins, penicillins, other antibiotics, medicines, foods, dyes or preservatives or trying to get breast-feeding What should I watch for while using this medicine? Tell your doctor or health health care facilities inspector if your symptoms do not begin to improve in a few days. Do not treat diarrhea with over the counter products. Contact your doctor if you have diarrhea that lasts more than 2 days or if it is severe and watery. If you have diabetes, you may get a false-positive result for sugar in your urine. Check with your doctor or health health care facilities inspector. Oxycodone Hydrochloride, Acetaminophen Oral tablet What is this medicine? ACETAMINOPHEN; OXYCODONE (a set a YAHIR sriram fen; ox i KOE done) is a pain reliever. It is used to treat mild to moderate pain. How should I use this medicine? Take this medicine by mouth with a full glass of water. Follow the directions on the prescription label. Take your medicine at regular intervals. Do not take your medicine more often than directed. Talk to your weatherization operations manager regarding the use of this medicine in children. Special care may be needed. Patients over 65 years old may have a stronger reaction and need a smaller dose. What side effects may I notice from receiving this medicine? Side effects that you should report to your doctor or health health care facilities inspector as soon as possible: allergic reactions like skin rash, itching or hives, swelling of the face, lips, or tongue breathing difficulties, wheezing confusion light headedness or fainting spells severe stomach pain yellowing of the skin or the whites of the eyes Side effects that usually do not require medical attention (report to your doctor or health health care facilities inspector if they continue or are bothersome): dizziness drowsiness nausea vomiting What may interact with this medicine? alcohol antihistamines barbiturates like amobarbital, butalbital, butabarbital, methohexital, pentobarbital, phenobarbital, thiopental, and secobarbital benztropine drugs for bladder problems like solifenacin, trospium, oxybutynin, tolterodine, hyoscyamine, and methscopolamine drugs for breathing problems like ipratropium and tiotropium drugs for certain stomach or intestine problems like propantheline, homatropine methylbromide, glycopyrrolate, atropine, belladonna, and dicyclomine general anesthetics like etomidate, ketamine, nitrous oxide, propofol, desflurane, enflurane, halothane, isoflurane, and sevoflurane medicines for depression, anxiety, or psychotic disturbances medicines for sleep muscle relaxants naltrexone narcotic medicines (opiates) for pain phenothiazines like perphenazine, thioridazine, chlorpromazine, mesoridazine, fluphenazine, prochlorperazine, promazine, and trifluoperazine scopolamine tramadol trihexyphenidyl What if I miss a dose? If you miss a dose, take it as soon as you can. If it is almost time for your next dose, take only that dose. Do not take double or extra doses. Where should I keep my medicine? Keep out of the reach of children. This medicine can be abused. Keep your medicine in a safe place to protect it from theft. Do not share this medicine with anyone. Selling or giving away this medicine is dangerous and against the law. Store at room temperature between 20 and 25 degrees C (68 and 77 degrees F). Keep container tightly closed. Protect from light. This medicine may cause accidental overdose and if it is taken by other adults, children, or pets. Flush any unused medicine down the toilet to reduce the chance of harm. Do not use the medicine after the expiration date. What should I tell my health care provider before I take this medicine? They need to know if you have any of these conditions: brain tumor Crohn's disease, inflammatory bowel disease, or ulcerative colitis drink more than 3 alcohol containing drinks per day drug abuse or addiction head injury heart or circulation problems kidney disease or problems going to the bathroom liver disease lung disease, asthma, or breathing problems an unusual or allergic reaction to acetaminophen, oxycodone, other opioid analgesics, other medicines, foods, dyes, or preservatives or trying to get breast-feeding What should I watch for while using this medicine? Tell your doctor or health health care facilities inspector if your pain does not go away, if it gets worse, or if you have new or a different type of pain. You may develop tolerance to the medicine. Tolerance means that you will need a higher dose of the medication for pain relief. Tolerance is normal and is expected if you take this medicine for a long time. Do not suddenly stop taking your medicine because you may develop a severe reaction. Your body becomes used to the medicine. This does NOT mean you are addicted. Addiction is a behavior related to getting and using a drug for a non-medical reason. If you have pain, you have a medical reason to take pain medicine. Your doctor will tell you how much medicine to take. If your doctor wants you to stop the medicine, the dose will be slowly lowered over time to avoid any side effects. You may get drowsy or dizzy. Do not drive, use machinery, or do anything that needs mental alertness until you know how this medicine affects you. Do not stand or sit up quickly, especially if you are an older patient. This reduces the risk of dizzy or fainting spells. Alcohol may interfere with the effect of this medicine. Avoid alcoholic drinks. There are different types of narcotic medicines (opiates) for pain. If you take more than one type at the same time, you may have more side effects. Give your health care provider a list of all medicines you use. Your doctor will tell you how much medicine to take. Do not take more medicine than directed. Call emergency for help if you have problems breathing. The medicine will cause constipation. Try to have a bowel movement at least every 2 to 3 days. If you do not have a bowel movement for 3 days, call your doctor or health health care facilities inspector. Do not take Tylenol (acetaminophen) or medicines that have acetaminophen with this medicine. Too much acetaminophen can be very dangerous. Many nonprescription medicines contain acetaminophen. Always read the labels carefully to avoid taking more acetaminophen. You have been given the following additional information: Cellulitis Sulfamethoxazole, Trimethoprim Oral tablet Cephalexin Monohydrate Oral tablet Oxycodone Hydrochloride, Acetaminophen Oral tablet (Electronically signed by Cass Wray P.A.-C 08/02/2016 14:38)
== END 2016-08-02 14:26 | disposition home or self-care (01) ==
LOC: ED SRH 13:58
DX: L03.115 Cellulitis of right lower limb (principal); Z72.0 Tobacco use

== ENCOUNTER 2016-08-08 09:25 | Emergency (ER) | payer OTHER ==
--- NOTE | 2016-08-08 12:21 | ED ORDER SUMMARY ---
..... Patient: GA RAMACHANDRAN OrderSheet [facility] VisitID: [id number] [address] [place] [address] 31y, F Registration Date/Time: 08/08/2016 ORDER SHEET Weight: 72.5 kg (stated) Allergies: Hydrocodone GENERAL ORDERS: CBC w Diff Urgent (:08/08/2016 Mihaela Nichols) (Ack 9:59 Bettina) (10:00 MWinterer R.N.) BMP Urgent (:08/08/2016 Mihaela Nichols) (Ack 9:59 Kavitharner) (10:00 MWinterer R.N.) UA-Culture if indicated Urgent (08/08/2016 Mihaela Nichols) (Ack 9:59 Bettina) (10:13 MWinterer R.N.) Urine Urgent (08/08/2016 Mihaela Nichols) (Ack 9:59 eBttina) (10:13 MWinterer R.N.) MEDICATION ORDERS: HydrOXYzine PO 50 mg (NOW) (11:08/08/2016 Mihaela Nichols) (Ack 11:08 MWinterer R.N.) (11:21 MWinterer R.N.) Percocet PO 5/325 mg (HIGH ALERT MEDICATION, NOW) (12:18 08/08/2016 Mihaela Nichols) (Ack 12:20 MWinterer R.N.) (12:25 MWinterer R.N.) IV FLUIDS: Solu-MEDROL IV 125 mg (NOW) (09:08/08/2016 Mihaela Nichols) (Ack 10:00 MWinterer R.N.) (10:13 MWinterer R.N.) Benadryl IV 50 mg (NOW) (08/08/2016 Mihaela Nichols) (Ack 10:00 MWinterer R.N.) (10:14 MWinterer R.N.) Pepcid IV 20 mg/50mL (NOW) (11:08/08/2016 Mihaela Nichols) (Ack 11:08 MWinterer R.N.) (11:21 MWinterer R.N.) ORDER SHEET NOTES: [Electronically signed by Barb Smith R.N. (12:33 08/08/2016)] [Electronically signed by Duc Mcgraw Dr. (15:22 08/09/2016)] [Electronically locked/signed by Barb Smith R.N. (12:33 08/08/2016)]
--- NOTE | 2016-08-08 12:21 | ED NURSING NOTES ---
Clinical Report - Nurses [facility] [address] [place] [address] 08/08/2016 9:26 Patient: GA RAMACHANDRAN TRIAGE Acuity: LEVEL 3. Chief Complaint: POSSIBLE ALLERGIC REACTION. Alert. No acute distress. SEPSIS SCREEN: Sepsis Screen. Negative (no infection suspected/documented). --09:44 Barb Smith R.N. 09:39 08/08/16. BP: 124/89. HR: 125. RR: 18. O2 saturation: 100%. Temp: 98.5 F (oral). --09:44 Barb Smith R.N. Weight: 72.5 kg stated. Height/Length: 66 inches Per Patient. BMI: 25.8. --09:42 Barb Smith R.N. Medication/allergy information source: the patient. --09:44 Barb Smith R.N. Allergies Hydrocodone. (ghi upset) --09:45 Barb Smith R.N. History Arrived by private vehicle. Historian: patient. Accompanied by friend. Primary physician (none). ( Pt was seen in this ED on August 02 for "a skin infection on my leg". Pt was given rx for cephalexin and bactrim. She states she developed skin redness and burning two days ago.). She has had a skin rash and difficulty breathing. No itching. PAST MEDICAL HX: Immunizations: up-to-date. Last normal menstrual period was 2 weeks ago. SOCIAL HX: Current every day light tobacco smoker (cigarette)- less than 1/2 a pack per day. History of drug use: methamphetamines. Recently used drugs days ago. No alcohol use. FALL RISK ASSESSMENT: Fall risk assessment completed. No fall risk identified. NUTRITIONAL RISK ASSESSMENT: The nutritional risk assessment revealed no deficiencies. FUNCTIONAL ASSESSMENT: Functional assessment: no impairments noted. LEARNING NEEDS ASSESSMENT: The learning needs assessment revealed no barriers. SKIN INTEGRITY ASSESSMENT: Skin integrity risk assessment completed. No skin integrity risk identified. --09:44 Barb Smith R.N. Assessment GENERAL / NEURO / PSYCH: Alert. Oriented X 4. Appears in no acute distress. Emeterio Coma Scale: 15- eyes open spontaneously (4); best verbal response- oriented x 4 (5); best motor response- obeys commands (6). Patient appears calm and cooperative. RESPIRATORY: Respirations not labored. CVS: Capillary refill less than 2 seconds. SKIN: Mucous membranes are pink. Skin is warm and dry. Generalized skin rash. ( skin red). --09:44 Barb Smith R.N. Interventions ID band on patient. To treatment room. --09:44 Barb Smith R.N. PHYSICAL ASSESSMENT Ambulatory to room. Patient gowned. GENERAL / NEURO / PSYCH: Alert. The patient does not appear to be in acute distress. Oriented X 4. HEENT: Pupils equal, round and reactive to light. Mucous membranes are pink. RESPIRATORY: Respirations not labored. CVS: Capillary refill less than 2 seconds. Pulses within normal limits. SKIN: Skin is intact, warm and dry. Skin rash present. Increased warmth present. Erythema present. No skin rash. --09:45 Barb Smith R.N. NURSING PROGRESS NOTES 09:46 08/08/16. Patient gowned. Two patient identifiers checked. Call light placed in reach. Side rails up x 1. Bed placed in lowest position. Brakes of bed on. Patient ready for evaluation- chart flagged and ED physician notified. --09:46 Barb Smith R.N. 09:49 08/08/2016 Site #1 started via IV in the right antecubital space with an 20g angiocath, with aseptic technique and good blood return; one attempt. Blood drawn: rainbow set. Labeled in the presence of the patient and sent to the lab. Saline lock flushed with 10 mL saline. --09:49 Barb Smith R.N. 10:08 08/08/2016 SOLU-MEDROL (MethylPREDNISolone Sodium Succ) IVP 125 mg given over 1 minute(s) via site #1. Allergies verified and confirmed 5 rights. IV patency established. IV site checked: no pain, redness, or swelling. IV flushed thoroughly pre- and post-medication administration. IVP given by RN. --10:13 Barb Smith R.N. 10:09 08/08/2016 Benadryl (DiphenhydrAMINE HCl) IVP 50 mg given. via site #1. Allergies verified, confirmed 5 rights and sedative warning given to the patient. IV patency established. IV site checked: no pain, redness, or swelling. IV flushed thoroughly pre- and post-medication administration. IVP given by RN. --10:14 Barb Smith R.N. 10:14 08/08/16. Checked patient name and birthdate: patient confirmed. Instructions provided to collect clean catch urine and patient verbalized understanding. Clean catch urine collected with return of radha-colored clear urine; sample sent to lab for urinalysis and HCG. Specimen labeled in the presence of the patient. --10:15 Barb Smith R.N. 11:19 08/08/16. BP: 117/72. HR: 105. RR: 18. O2 saturation: 100% on room air. --11:19 Barb Smith R.N. 11:21 08/08/2016 Started 20 mg of Pepcid IVPB in bag #1 50 mL; at 100 mL/hr over 30 minute(s) via site #1 via IV pump. Allergies verified and confirmed 5 rights. IV patency established. IV site checked: no pain, redness, or swelling. IV flushed thoroughly pre- and post-medication administration. --11:21 Barb Smith R.N. 11:21 08/08/2016 Hydroxyzine (HydrOXYzine HCl) PO 50 mg given. Allergies verified, confirmed 5 rights and sedative warning given to the patient. --11:21 Barb Smith R.N. 11:45 08/08/2016 Pepcid IVPB Discontinued: bag #1 infused. Total amount infused: 50 mL. IV patency established. IV site checked: no pain, redness, or swelling. IV flushed thoroughly. --11:45 Barb Smith R.N. 11:46 08/08/16. The patient reports no complaints and she is calm and resting quietly. Overall patient status is improved- she states feels better. RESPIRATORY: No respiratory distress. Breath sounds normal. SKIN: Skin is warm and dry. --11:46 Barb Smith R.N. 12:25 08/08/2016 Percocet (Oxycodone-Acetaminophen) PO 5/325 mg Tablets 1 tab given. Allergies verified, confirmed 5 rights and sedative warning given to the patient. --12:25 Barb Smith R.N. DISPOSITION / DISCHARGE Departure time: 12:25 Aug 08 2016. Condition at departure: improved and stable. No learning barriers present. Reviewed medication(s) side effects, precautions, dosing and course information. Prescription(s) given to the patient. Patient verbalized understanding. Written instructions provided in Cambodian. The patient was discharged by the physician. She was discharged home and accompanied by marriage therapist. She left the Emergency Department ambulatory and via private vehicle. Paper Sales Manager driving. --12:32 Barb Smith R.N. 12:31 08/08/16. BP: 110/66. HR: 101. RR: 16. O2 saturation: 100%. Temp: 98.4 F (oral). Pain level now: 0/10. --12:32 Barb Smith R.N. 12:22 08/08/2016 Site #1 removed upon discharge. Catheter intact. Bandage applied. --12:32 Barb Smith R.N. Locked/Released at 08/08/2016 12:33 by Barb Smith R.N.
--- NOTE | 2016-08-08 12:21 | ED ORDER SUMMARY ---
..... Patient: GA RAMACHANDRAN OrderSheet [facility] VisitID: [id number] [address] [place] [address] 31y, F Registration Date/Time: 08/08/2016 ORDER SHEET Weight: 72.5 kg (stated) Allergies: Hydrocodone GENERAL ORDERS: CBC w Diff Urgent (:08/08/2016 Mihaela Nichols) (Ack 9:59 Bettina) (10:00 MWinterer R.N.) BMP Urgent (:08/08/2016 Mihaela Nichols) (Ack 9:59 Kavitharner) (10:00 MWinterer R.N.) UA-Culture if indicated Urgent (08/08/2016 Mihaela Nichols) (Ack 9:59 Bettina) (10:13 MWinterer R.N.) Urine Urgent (08/08/2016 Mihaela Nichols) (Ack 9:59 Bettina) (10:13 MWinterer R.N.) MEDICATION ORDERS: HydrOXYzine PO 50 mg (NOW) (11:08/08/2016 Mihaela Nichols) (Ack 11:08 MWinterer R.N.) (11:21 MWinterer R.N.) Percocet PO 5/325 mg (HIGH ALERT MEDICATION, NOW) (12:18 08/08/2016 Mihaela Nichols) (Ack 12:20 MWinterer R.N.) (12:25 MWinterer R.N.) IV FLUIDS: Solu-MEDROL IV 125 mg (NOW) (09:08/08/2016 Mihaela Nichols) (Ack 10:00 MWinterer R.N.) (10:13 MWinterer R.N.) Benadryl IV 50 mg (NOW) (08/08/2016 Mihaela Nichols) (Ack 10:00 MWinterer R.N.) (10:14 MWinterer R.N.) Pepcid IV 20 mg/50mL (NOW) (11:08/08/2016 Mihaela Nichols) (Ack 11:08 MWinterer R.N.) (11:21 MWinterer R.N.) ORDER SHEET NOTES: [Electronically signed by Barb Smith R.N. (12:33 08/08/2016)] [Electronically signed by Duc Mcgraw Dr. (15:22 08/09/2016)] [Electronically locked/signed by Barb Smith R.N. (12:33 08/08/2016)]
--- NOTE | 2016-08-08 12:21 | ED NURSING NOTES ---
Clinical Report - Nurses [facility] [address] [place] [address] 08/08/2016 9:26 Patient: GA RAMACHANDRAN TRIAGE Acuity: LEVEL 3. Chief Complaint: POSSIBLE ALLERGIC REACTION. Alert. No acute distress. SEPSIS SCREEN: Sepsis Screen. Negative (no infection suspected/documented). --09:44 aBrb Smith R.N. 09:39 08/08/16. BP: 124/89. HR: 125. RR: 18. O2 saturation: 100%. Temp: 98.5 F (oral). --09:44 Barb Smith R.N. Weight: 72.5 kg stated. Height/Length: 66 inches Per Patient. BMI: 25.8. --09:42 Barb Smith R.N. Medication/allergy information source: the patient. --09:44 Barb Smith R.N. Allergies Hydrocodone. (ghi upset) --09:45 Barb Smith R.N. History Arrived by private vehicle. Historian: patient. Accompanied by friend. Primary physician (none). ( Pt was seen in this ED on August 02 for "a skin infection on my leg". Pt was given rx for cephalexin and bactrim. She states she developed skin redness and burning two days ago.). She has had a skin rash and difficulty breathing. No itching. PAST MEDICAL HX: Immunizations: up-to-date. Last normal menstrual period was 2 weeks ago. SOCIAL HX: Current every day light tobacco smoker (cigarette)- less than 1/2 a pack per day. History of drug use: methamphetamines. Recently used drugs days ago. No alcohol use. FALL RISK ASSESSMENT: Fall risk assessment completed. No fall risk identified. NUTRITIONAL RISK ASSESSMENT: The nutritional risk assessment revealed no deficiencies. FUNCTIONAL ASSESSMENT: Functional assessment: no impairments noted. LEARNING NEEDS ASSESSMENT: The learning needs assessment revealed no barriers. SKIN INTEGRITY ASSESSMENT: Skin integrity risk assessment completed. No skin integrity risk identified. --09:44 Barb Smith R.N. Assessment GENERAL / NEURO / PSYCH: Alert. Oriented X 4. Appears in no acute distress. Emeterio Coma Scale: 15- eyes open spontaneously (4); best verbal response- oriented x 4 (5); best motor response- obeys commands (6). Patient appears calm and cooperative. RESPIRATORY: Respirations not labored. CVS: Capillary refill less than 2 seconds. SKIN: Mucous membranes are pink. Skin is warm and dry. Generalized skin rash. ( skin red). --09:44 Barb Smith R.N. Interventions ID band on patient. To treatment room. --09:44 Barb Smith R.N. PHYSICAL ASSESSMENT Ambulatory to room. Patient gowned. GENERAL / NEURO / PSYCH: Alert. The patient does not appear to be in acute distress. Oriented X 4. HEENT: Pupils equal, round and reactive to light. Mucous membranes are pink. RESPIRATORY: Respirations not labored. CVS: Capillary refill less than 2 seconds. Pulses within normal limits. SKIN: Skin is intact, warm and dry. Skin rash present. Increased warmth present. Erythema present. No skin rash. --09:45 Barb Smith R.N. NURSING PROGRESS NOTES 09:46 08/08/16. Patient gowned. Two patient identifiers checked. Call light placed in reach. Side rails up x 1. Bed placed in lowest position. Brakes of bed on. Patient ready for evaluation- chart flagged and ED physician notified. --09:46 Barb Smith R.N. 09:49 08/08/2016 Site #1 started via IV in the right antecubital space with an 20g angiocath, with aseptic technique and good blood return; one attempt. Blood drawn: rainbow set. Labeled in the presence of the patient and sent to the lab. Saline lock flushed with 10 mL saline. --09:49 Barb Smith R.N. 10:08 08/08/2016 SOLU-MEDROL (MethylPREDNISolone Sodium Succ) IVP 125 mg given over 1 minute(s) via site #1. Allergies verified and confirmed 5 rights. IV patency established. IV site checked: no pain, redness, or swelling. IV flushed thoroughly pre- and post-medication administration. IVP given by RN. --10:13 Barb Smith R.N. 10:09 08/08/2016 Benadryl (DiphenhydrAMINE HCl) IVP 50 mg given. via site #1. Allergies verified, confirmed 5 rights and sedative warning given to the patient. IV patency established. IV site checked: no pain, redness, or swelling. IV flushed thoroughly pre- and post-medication administration. IVP given by RN. --10:14 Barb Smith R.N. 10:14 08/08/16. Checked patient name and birthdate: patient confirmed. Instructions provided to collect clean catch urine and patient verbalized understanding. Clean catch urine collected with return of radha-colored clear urine; sample sent to lab for urinalysis and HCG. Specimen labeled in the presence of the patient. --10:15 Barb Smith R.N. 11:19 08/08/16. BP: 117/72. HR: 105. RR: 18. O2 saturation: 100% on room air. --11:19 Barb Smith R.N. 11:21 08/08/2016 Started 20 mg of Pepcid IVPB in bag #1 50 mL; at 100 mL/hr over 30 minute(s) via site #1 via IV pump. Allergies verified and confirmed 5 rights. IV patency established. IV site checked: no pain, redness, or swelling. IV flushed thoroughly pre- and post-medication administration. --11:21 Barb Smith R.N. 11:21 08/08/2016 Hydroxyzine (HydrOXYzine HCl) PO 50 mg given. Allergies verified, confirmed 5 rights and sedative warning given to the patient. --11:21 Barb Smith R.N. 11:45 08/08/2016 Pepcid IVPB Discontinued: bag #1 infused. Total amount infused: 50 mL. IV patency established. IV site checked: no pain, redness, or swelling. IV flushed thoroughly. --11:45 Barb Smith R.N. 11:46 08/08/16. The patient reports no complaints and she is calm and resting quietly. Overall patient status is improved- she states feels better. RESPIRATORY: No respiratory distress. Breath sounds normal. SKIN: Skin is warm and dry. --11:46 Barb Smith R.N. 12:25 08/08/2016 Percocet (Oxycodone-Acetaminophen) PO 5/325 mg Tablets 1 tab given. Allergies verified, confirmed 5 rights and sedative warning given to the patient. --12:25 Barb Smith R.N. DISPOSITION / DISCHARGE Departure time: 12:25 Aug 08 2016. Condition at departure: improved and stable. No learning barriers present. Reviewed medication(s) side effects, precautions, dosing and course information. Prescription(s) given to the patient. Patient verbalized understanding. Written instructions provided in [place]. The patient was discharged by the physician. She was discharged home and accompanied by air traffic instructor. She left the Emergency Department ambulatory and via private vehicle. Aircraft Assembler driving. --12:32 Barb Smith R.N. 12:31 08/08/16. BP: 110/66. HR: 101. RR: 16. O2 saturation: 100%. Temp: 98.4 F (oral). Pain level now: 0/10. --12:32 Barb Smith R.N. 12:22 08/08/2016 Site #1 removed upon discharge. Catheter intact. Bandage applied. --12:32 Barb Smith R.N. Locked/Released at 08/08/2016 12:33 by Barb Smith R.N.
--- NOTE | 2016-08-08 12:21 | ED CLINICAL REPORT ---
Clinical Report - Physicians/Mid Levels [facility] [address] [place] [address] 08/08/2016 9:26 Patient: GA RAMACHANDRAN Time Seen: 0945. Arrived- By private vehicle. Historian- patient. HISTORY OF PRESENT ILLNESS Chief Complaint: ALLERGIC REACTION and SKIN RASH. This started past few days and is still present and worsening. It was abrupt in onset and has been constant but is not gone now. The patient has had a moderate, itchy, painful skin rash (generalized). A possible cause has been identified (bactrim or keflex for infection to the right foot). (states she fell out of bed as well yesterday. states she hit the front part of her head. no LOC. no n/v. no behavior changes. rates pain as mild/moderate. no other concerns. no anticoagulation.). Similar symptoms previously: None. Recent medical care: Not recently seen/assessed. REVIEW OF SYSTEMS No eye problems, fever, chills, chest pain or abdominal pain. No vomiting, black stools, pain with urination, diarrhea or bloody stools. All systems otherwise negative, except as recorded above. PAST HISTORY See nurses notes. Allergies: Hydrocodone. (ghi upset). SOCIAL HISTORY Smoker- current status unknown. History of occasional drug use: methamphetamines. No alcohol use. No recent travel. Is a local resident. ADDITIONAL NOTES The nursing notes have been reviewed. PHYSICAL EXAM Vital Signs: 08/08/2016 09:39 BP: 124/89. HR: 125. RR: 18. O2 saturation: 100%. Temp: 98.5 F. Oxygen saturation normal. Appearance: Alert. Oriented X3. No acute distress. Head and Neck: Normal external inspection. Eyes: Pupils equal, round and reactive to light. ENT: Ears normal. Nose normal. Pharynx normal. Voice normal. Neck: Neck supple. No lymphadenopathy or meningeal signs. (no stridor). CVS: Tachycardia. Heart sounds normal. Normal rhythm. Respiratory: No respiratory distress. Breath sounds normal. No decreased air movement, accessory muscle use, wheezes, rales or rhonchi. Abdomen: Nontender. No organomegaly. Extremities: Normal external inspection. Extremities nontender. Skin: (blanchable raised macular papular rash. Distributed over the majority of the patient's bodies and extremity. Does not involve the palms or soles. Nontender. No weeping. No vesicles. Area of erythema noted to the dorsum of the right foot. Appears to be darker red rather than bright red. No crepitus. No bony other maladies. No masses. No area of induration.). Neuro: Oriented X 3. No motor deficit. No sensory deficit. PROGRESS AND PROCEDURES Course of Care: the patient is a pleasant 31-year-old female presenting for evaluation ofallergic reaction and head injury. Patient is otherwise appropriate. Do not feel CT scan of the head is warranted at this time. Feel the risks of CT scan outweighs the benefits. We'll continue to monitor the patient and if her condition changes, we'll consider performing CT scan then. Patient improved with the medications provided however did have some significant rash still apparent on examination. Further medications are provided. Patient continued to be monitored. No signs of airway compromise. No signs of anaphylaxis. After the second dose of medications were provided and the steroids were given some time to take effect, the patient reported significant improvement with her symptoms. Patient continues to be appropriate. No signs of anaphylaxis. Do not feel CT scan of the patient's head is warranted at this time. Had a discussion with the patient regards to her antibiotic therapy. At this time is most likely Bactrim however could potentially be Keflex as well. recommended patient to longer take Bactrim/sulfa medications as well as cephalosporins, Including Keflex. Discussed the patient workup here in emergency department including diagnosis, home care, follow-up, and return precautions. All questions have been answered. The patient expressed understanding of these instructions and was agreeable to them. Disposition: Discharged. Condition: good. CLINICAL IMPRESSION Generalized drug rash due to oral cephalosporin and sulfa (moderate). Minor closed head injury. No loss of consciousness. INSTRUCTIONS (stop taking the keflex and the bactrim). Warnings: GENERAL WARNINGS: Return or contact your physician immediately if your condition worsens or changes unexpectedly, if not improving as expected, or if other problems arise. Specifically return if pain, vomiting, bleeding, breathing difficulty or fever. Prescription Medications: Doxycycline 100 mg: Take 1 capsule orally for 10 days. No refill. (disp 20 caps. avoid direct sun exposure while on medication.) Percocet 5 mg/325 mg: take 1 tablet orally every 6 hours as needed for pain. Dispense twelve (12). No refill. Substitution is permissible. Prednisone 50 mg: take 1 orally every day for 5 days. Dispense five (5). No refills. Hydroxyzine 50 mg: take 1 orally every 8 hours as needed for itching. Dispense thirty (30). No refill. Follow-up: Return to the emergency department as needed. Follow up with your doctor in three days. Reason for referral: recheck today's concerns. Summary of care provided to patient via paper. Screening today revealed the patient's blood pressure to be in the normal range. The patient should follow up with a primary care provider for blood pressure management. Understanding of the discharge instructions verbalized by patient. (Electronically signed by Duc Mcgraw Dr. 08/09/2016 15:22)
--- NOTE | 2016-08-09 15:22 | ED MAR SUMMARY ---
..... Medication Administration Record [facility] [address] [address] Patient: GA RAMACHANDRAN Visit ID: [id number] 31y, F Weight: 72.5 kg Height/Length: 66 in BMI: 25.8 ALLERGIES: Hydrocodone Given 10:08 08/08/2016 Barb Smith R.N. Medication Administered: SOLU-MEDROL [IVP] (METHYLPREDNISOLONE SODIUM SUCC), Dose: 125 mg IVP over 1 minute(s), Site: #1 right AC. Medication Ordered: Solu-MEDROL IV 125 mg (NOW). Given 10:09 08/08/2016 Barb Smith R.N. Medication Administered: BENADRYL [IVP] (DIPHENHYDRAMINE HCL), Dose: 50 mg IVP, Site: #1 right AC. Medication Ordered: Benadryl IV 50 mg (NOW). Start 11:21 08/08/2016 Barb Smith R.N., Stop 11:45 08/08/2016 Barb Smith R.N. Medication Administered: PEPCID [IVPB], Dose: 20 mg IVPB over 30 minute(s), Rate: 100 mL/hr, Dispensed: 50 mL bag, Site: #1 right AC. Medication Ordered: Pepcid IV 20 mg/50mL (NOW). Given 11:21 08/08/2016 Barb Smith R.N. Medication Administered: HYDROXYZINE [PO] (HYDROXYZINE HCL), Dose: 50 mg PO. Medication Ordered: HydrOXYzine PO 50 mg (NOW). Given 12:25 08/08/2016 Barb Smith R.N. Medication Administered: PERCOCET [PO] (OXYCODONE-ACETAMINOPHEN), Dose: 1 tab 5/325 mg Tablets PO. Medication Ordered: Percocet PO 5/325 mg (HIGH ALERT MEDICATION, NOW).
--- NOTE | 2016-08-09 15:22 | ED MAR SUMMARY ---
..... Medication Administration Record [facility] [address] [place] [address] Patient: GA RAMACHANDRAN Visit ID: [id number] 31y, F Weight: 72.5 kg Height/Length: 66 in BMI: 25.8 ALLERGIES: Hydrocodone Given 10:08 08/08/2016 Barb Smith R.N. Medication Administered: SOLU-MEDROL [IVP] (METHYLPREDNISOLONE SODIUM SUCC), Dose: 125 mg IVP over 1 minute(s), Site: #1 right AC. Medication Ordered: Solu-MEDROL IV 125 mg (NOW). Given 10:09 08/08/2016 Barb Smith R.N. Medication Administered: BENADRYL [IVP] (DIPHENHYDRAMINE HCL), Dose: 50 mg IVP, Site: #1 right AC. Medication Ordered: Benadryl IV 50 mg (NOW). Start 11:21 08/08/2016 Barb Smith R.N., Stop 11:45 08/08/2016 Barb Smith R.N. Medication Administered: PEPCID [IVPB], Dose: 20 mg IVPB over 30 minute(s), Rate: 100 mL/hr, Dispensed: 50 mL bag, Site: #1 right AC. Medication Ordered: Pepcid IV 20 mg/50mL (NOW). Given 11:21 08/08/2016 Barb Smith R.N. Medication Administered: HYDROXYZINE [PO] (HYDROXYZINE HCL), Dose: 50 mg PO. Medication Ordered: HydrOXYzine PO 50 mg (NOW). Given 12:25 08/08/2016 Barb Smith R.N. Medication Administered: PERCOCET [PO] (OXYCODONE-ACETAMINOPHEN), Dose: 1 tab 5/325 mg Tablets PO. Medication Ordered: Percocet PO 5/325 mg (HIGH ALERT MEDICATION, NOW).
--- NOTE | 2016-08-09 15:22 | ED MED RECONCILIATION SUMMARY ---
Patient: GA RAMACHANDRAN Medication Reconciliation Report [facility] VisitID: [id number] [address] [place] [address] 31y, F Registration Date/Time: 08/08/2016 Weight: 72.5 kg Height/Length: 66 in. BMI: 25.8 ALLERGIES: Hydrocodone The patient's Home Medications are listed below: Not obtained. The source(s) of the original Home Medication information: patient The following Medications were given to the patient in the Emergency Department: SOLU-MEDROL [IVP] IVP 125 mg, administered: 08/08/2016 10:08:00 AM Benadryl [IVP] IVP 50 mg, administered: 08/08/2016 10:09:00 AM Pepcid [IVPB] IVPB bolus 0, then 20 mg 100 mL/hr, administered: 08/08/2016 11:21:00 AM Hydroxyzine [PO] PO 50 mg, administered: 08/08/2016 11:21:00 AM Percocet [PO] PO 1 tab, administered: 08/08/2016 12:25:00 PM The following Medications were prescribed to the patient: Doxycycline 100 mg: Take 1 capsule orally for 10 days. No refill.(disp 20 caps. avoid direct sun exposure while on medication.) -- Duc Mcgraw Dr. Percocet 5 mg/325 mg: take 1 tablet orally every 6 hours as needed for pain. Dispense twelve (12). No refill. Substitution is permissible. -- Duc Mcgraw Dr. Prednisone 50 mg: take 1 orally every day for 5 days. Dispense five (5). No refills. -- Duc Mcgraw Dr. Hydroxyzine 50 mg: take 1 orally every 8 hours as needed for itching. Dispense thirty (30). No refill. -- Duc Mcgraw Dr.
--- NOTE | 2016-08-09 15:22 | ED DISCHARGE INSTRUCTIONS ---
Patient: GA RAMACHANDRAN General Instructions [facility] VisitID: [id number] [place] [address] 31y, F Registration Date/Time: 08/08/2016 Generalized drug rash due to oral cephalosporin and sulfa (moderate). Minor closed head injury. No loss of consciousness. INSTRUCTIONS (stop taking the keflex and the bactrim). Warnings: GENERAL WARNINGS: Return or contact your physician immediately if your condition worsens or changes unexpectedly, if not improving as expected, or if other problems arise. Specifically return if pain, vomiting, bleeding, breathing difficulty or fever. Prescription Medications: Doxycycline 100 mg: Take 1 capsule orally for 10 days. No refill. (disp 20 caps. avoid direct sun exposure while on medication.) Percocet 5 mg/325 mg: take 1 tablet orally every 6 hours as needed for pain. Dispense twelve (12). No refill. Substitution is permissible. Prednisone 50 mg: take 1 orally every day for 5 days. Dispense five (5). No refills. Hydroxyzine 50 mg: take 1 orally every 8 hours as needed for itching. Dispense thirty (30). No refill. Follow-up: Return to the emergency department as needed. Follow up with your doctor in three days. Reason for referral: recheck today's concerns. Summary of care provided to patient via paper. Screening today revealed the patient's blood pressure to be in the normal range. The patient should follow up with a primary care provider for blood pressure management. Understanding of the discharge instructions verbalized by patient. ADDITIONAL INFORMATION Drug Reaction: Allergic You are having an allergic reaction to a drug you have taken. This causes an itchy rash and sometimes swelling of various parts of the body. It may also cause trouble swallowing or breathing. The rash may take a few hours or up to two weeks to go away. In the future, remember to tell your doctor about your allergy to this drug so that drugs of this type won't be used again. Home Care: 1) Throw the drug away and do not take it again. The next reaction may be much worse. 2) Avoid tight clothing and anything that heats up your skin (hot showers/baths, direct sunlight) since heat will make itching worse. 3) An ice pack (ice cubes in a plastic bag, wrapped in a towel) will relieve local areas of intense itching and redness. Lanacaine cream or Solarcaine spray (or other product containing "benzocaine") will reduce the itching. 4) Avoid scratching which may worsen the reaction, damage your skin and lead to an infection. 5) Oral Benadryl (diphenhydramine) is an antihistamine available at drug and grocery stores. Unless a prescription antihistamine was given, Benadryl may be used to reduce itching if large areas of the skin are involved. Use lower doses during the daytime and higher doses at bedtime since the drug may make you sleepy. [NOTE: Do not use Benadryl if you have glaucoma or if you are a man with trouble urinating due to an enlarged prostate.] Claritin (loratadine) is an antihistamine that causes less drowsiness and is a good alternative for daytime use. Follow Up with your doctor or this facility in the next two days if your symptoms do not continue to improve. Get Prompt Medical Attention if any of the following occur: -- Wheezing, shortness of breath or difficulty swallowing -- Increased swelling in the face, eyelids, mouth, lips, tongue or throat -- Dizziness, weakness or fainting Head Injury, No Wake-Up (Adult) You have had a head injury. It does not appear serious at this time. Symptoms of a more serious problem (concussion, bruising, or bleeding in the brain) may appear later. Therefore, watch for the WARNING SIGNS listed below. Home Care: Your healthcare provider will tell you whether its okay to drive. If so, you can drive yourself home. For the next day or so, be careful when driving or using heavy machinery until you are sure you have no delayed symptoms. During the next 24 hours someone must stay with you to check for the signs below. It is not necessary to stay awake or be awakened during the night. If you have swelling of the face or scalp, apply an ice pack (ice cubes in a plastic bag, wrapped in a towel) for 20 minutes. Do this every 1-2 hours until the swelling starts to go down. Do not use aspirin or ibuprofen (Motrin, Advil) after a head injury.You may use acetaminophen (Tylenol)to control pain, unless another pain medicine was prescribed. [NOTE: If you have chronic liver or kidney disease or ever had a stomach ulcer or GI bleeding, talk with your doctor before using these medicines.] For the next 24 hours: Do not take alcohol, sedatives or medicines that make you sleepy. Avoid strenuous activities. No lifting or straining. If you have had any symptoms of a concussion today (nausea, vomiting, dizziness, confusion, headache, memory loss or if you were knocked out), do not return to sports or any activity that could result in another head injury until all symptoms are gone and you have been cleared by your doctor. A second head injury before fully recovering from the first one can lead to serious brain injury. Follow Up with your doctor if symptoms are not improving after 24 hours, or as directed. [NOTE: A radiologist will review any X-rays or CT scans that were taken. We will notify you of any new findings that may affect your care.] Get Prompt Medical Attention if any of the followingWARNING SIGNS occur: Repeated vomiting Severe or worsening headache or dizziness Unusual drowsiness, or unable to awaken as usual Confusion or change in behavior or speech, memory loss, blurred vision Convulsion (seizure) Increasing scalp or face swelling Redness, warmth or pus from the swollen area Fluid drainage or bleeding from the nose or ears Doxycycline Monohydrate Oral tablet What is this medicine? DOXYCYCLINE (dox ulices tony) is a tetracycline antibiotic. It kills certain bacteria or stops their growth. It is used to treat many kinds of infections, like dental, skin, respiratory, and urinary tract infections. It also treats acne, Lyme disease, malaria, and certain sexually transmitted infections. How should I use this medicine? Take this medicine by mouth with a full glass of water. Follow the directions on the prescription label. It is best to take this medicine without food, but if it upsets your stomach take it with food. Take your medicine at regular intervals. Do not take your medicine more often than directed. Take all of your medicine as directed even if you think you are better. Do not skip doses or stop your medicine early. Talk to your operations and maintenance supervisor regarding the use of this medicine in children. Special care may be needed. While this drug may be prescribed for children as young as 8 years old for selected conditions, precautions do apply. What side effects may I notice from receiving this medicine? Side effects that you should report to your doctor or health career portals teacher as soon as possible: allergic reactions like skin rash, itching or hives, swelling of the face, lips, or tongue difficulty breathing fever itching in the rectal or genital area pain on swallowing redness, blistering, peeling or loosening of the skin, including inside the mouth severe stomach pain or cramps unusual bleeding or bruising unusually weak or tired yellowing of the eyes or skin Side effects that usually do not require medical attention (report to your doctor or health career portals teacher if they continue or are bothersome): diarrhea loss of appetite nausea, vomiting What may interact with this medicine? antacids barbiturates control pills bismuth subsalicylate carbamazepine methoxyflurane other antibiotics phenytoin vitamins that contain iron warfarin What if I miss a dose? If you miss a dose, take it as soon as you can. If it is almost time for your next dose, take only that dose. Do not take double or extra doses. Where should I keep my medicine? Keep out of the reach of children. Store at room temperature, below 30 degrees C (86 degrees F). Protect from light. Keep container tightly closed. Throw away any unused medicine after the expiration date. Taking this medicine after the expiration date can make you seriously ill. What should I tell my health care provider before I take this medicine? They need to know if you have any of these conditions: liver disease long exposure to sunlight like working outdoors stomach problems like colitis an unusual or allergic reaction to doxycycline, tetracycline antibiotics, other medicines, foods, dyes, or preservatives or trying to get breast-feeding What should I watch for while using this medicine? Tell your doctor or health career portals teacher if your symptoms do not improve. Do not treat diarrhea with over the counter products. Contact your doctor if you have diarrhea that lasts more than 2 days or if it is severe and watery. Do not take this medicine just before going to bed. It may not dissolve properly when you lay down and can cause pain in your throat. Drink plenty of fluids while taking this medicine to also help reduce irritation in your throat. This medicine can make you more sensitive to the sun. Keep out of the sun. If you cannot avoid being in the sun, wear protective clothing and use sunscreen. Do not use sun lamps or tanning beds/booths. control pills may not work properly while you are taking this medicine. Talk to your doctor about using an extra method of control. If you are being treated for a sexually transmitted infection, avoid sexual contact until you have finished your treatment. Your sexual partner may also need treatment. Avoid antacids, aluminum, calcium, magnesium, and iron products for 4 hours before and 2 hours after taking a dose of this medicine. If you are using this medicine to prevent malaria, you should still protect yourself from contact with mosquitos. Stay in screened-in areas, use mosquito nets, keep your body covered, and use an insect repellent. Oxycodone Hydrochloride, Acetaminophen Oral tablet What is this medicine? ACETAMINOPHEN; OXYCODONE (a set a YAHIR sriram fen; ox i KOE done) is a pain reliever. It is used to treat mild to moderate pain. How should I use this medicine? Take this medicine by mouth with a full glass of water. Follow the directions on the prescription label. Take your medicine at regular intervals. Do not take your medicine more often than directed. Talk to your operations and maintenance supervisor regarding the use of this medicine in children. Special care may be needed. Patients over 65 years old may have a stronger reaction and need a smaller dose. What side effects may I notice from receiving this medicine? Side effects that you should report to your doctor or health career portals teacher as soon as possible: allergic reactions like skin rash, itching or hives, swelling of the face, lips, or tongue breathing difficulties, wheezing confusion light headedness or fainting spells severe stomach pain yellowing of the skin or the whites of the eyes Side effects that usually do not require medical attention (report to your doctor or health career portals teacher if they continue or are bothersome): dizziness drowsiness nausea vomiting What may interact with this medicine? alcohol antihistamines barbiturates like amobarbital, butalbital, butabarbital, methohexital, pentobarbital, phenobarbital, thiopental, and secobarbital benztropine drugs for bladder problems like solifenacin, trospium, oxybutynin, tolterodine, hyoscyamine, and methscopolamine drugs for breathing problems like ipratropium and tiotropium drugs for certain stomach or intestine problems like propantheline, homatropine methylbromide, glycopyrrolate, atropine, belladonna, and dicyclomine general anesthetics like etomidate, ketamine, nitrous oxide, propofol, desflurane, enflurane, halothane, isoflurane, and sevoflurane medicines for depression, anxiety, or psychotic disturbances medicines for sleep muscle relaxants naltrexone narcotic medicines (opiates) for pain phenothiazines like perphenazine, thioridazine, chlorpromazine, mesoridazine, fluphenazine, prochlorperazine, promazine, and trifluoperazine scopolamine tramadol trihexyphenidyl What if I miss a dose? If you miss a dose, take it as soon as you can. If it is almost time for your next dose, take only that dose. Do not take double or extra doses. Where should I keep my medicine? Keep out of the reach of children. This medicine can be abused. Keep your medicine in a safe place to protect it from theft. Do not share this medicine with anyone. Selling or giving away this medicine is dangerous and against the law. Store at room temperature between 20 and 25 degrees C (68 and 77 degrees F). Keep container tightly closed. Protect from light. This medicine may cause accidental overdose and if it is taken by other adults, children, or pets. Flush any unused medicine down the toilet to reduce the chance of harm. Do not use the medicine after the expiration date. What should I tell my health care provider before I take this medicine? They need to know if you have any of these conditions: brain tumor Crohn's disease, inflammatory bowel disease, or ulcerative colitis drink more than 3 alcohol containing drinks per day drug abuse or addiction head injury heart or circulation problems kidney disease or problems going to the bathroom liver disease lung disease, asthma, or breathing problems an unusual or allergic reaction to acetaminophen, oxycodone, other opioid analgesics, other medicines, foods, dyes, or preservatives or trying to get breast-feeding What should I watch for while using this medicine? Tell your doctor or health career portals teacher if your pain does not go away, if it gets worse, or if you have new or a different type of pain. You may develop tolerance to the medicine. Tolerance means that you will need a higher dose of the medication for pain relief. Tolerance is normal and is expected if you take this medicine for a long time. Do not suddenly stop taking your medicine because you may develop a severe reaction. Your body becomes used to the medicine. This does NOT mean you are addicted. Addiction is a behavior related to getting and using a drug for a non-medical reason. If you have pain, you have a medical reason to take pain medicine. Your doctor will tell you how much medicine to take. If your doctor wants you to stop the medicine, the dose will be slowly lowered over time to avoid any side effects. You may get drowsy or dizzy. Do not drive, use machinery, or do anything that needs mental alertness until you know how this medicine affects you. Do not stand or sit up quickly, especially if you are an older patient. This reduces the risk of dizzy or fainting spells. Alcohol may interfere with the effect of this medicine. Avoid alcoholic drinks. There are different types of narcotic medicines (opiates) for pain. If you take more than one type at the same time, you may have more side effects. Give your health care provider a list of all medicines you use. Your doctor will tell you how much medicine to take. Do not take more medicine than directed. Call emergency for help if you have problems breathing. The medicine will cause constipation. Try to have a bowel movement at least every 2 to 3 days. If you do not have a bowel movement for 3 days, call your doctor or health career portals teacher. Do not take Tylenol (acetaminophen) or medicines that have acetaminophen with this medicine. Too much acetaminophen can be very dangerous. Many nonprescription medicines contain acetaminophen. Always read the labels carefully to avoid taking more acetaminophen. Prednisone Oral tablet What is this medicine? PREDNISONE (PRED ni sone) is a corticosteroid. It is commonly used to treat inflammation of the skin, joints, lungs, and other organs. Common conditions treated include asthma, allergies, and arthritis. It is also used for other conditions, such as blood disorders and diseases of the adrenal glands. How should I use this medicine? Take this medicine by mouth with a glass of water. Follow the directions on the prescription label. Take this medicine with food. If you are taking this medicine once a day, take it in the morning. Do not take more medicine than you are told to take. Do not suddenly stop taking your medicine because you may develop a severe reaction. Your doctor will tell you how much medicine to take. If your doctor wants you to stop the medicine, the dose may be slowly lowered over time to avoid any side effects. Talk to your operations and maintenance supervisor regarding the use of this medicine in children. Special care may be needed. What side effects may I notice from receiving this medicine? Side effects that you should report to your doctor or health career portals teacher as soon as possible: allergic reactions like skin rash, itching or hives, swelling of the face, lips, or tongue changes in emotions or moods changes in vision depressed mood eye pain fever or chills, cough, sore throat, pain or difficulty passing urine increased thirst swelling of ankles, feet Side effects that usually do not require medical attention (report to your doctor or health career portals teacher if they continue or are bothersome): confusion, excitement, restlessness headache nausea, vomiting skin problems, acne, thin and shiny skin trouble sleeping weight gain What may interact with this medicine? Do not take this medicine with any of the following medications: metyrapone mifepristone This medicine may also interact with the following medications: aminoglutethimide amphotericin B aspirin and aspirin-like medicines barbiturates certain medicines for diabetes, like glipizide or glyburide cholestyramine cholinesterase inhibitors cyclosporine digoxin diuretics ephedrine female hormones, like estrogens and control pills isoniazid ketoconazole NSAIDS, medicines for pain and inflammation, like ibuprofen or naproxen phenytoin rifampin toxoids vaccines warfarin What if I miss a dose? If you miss a dose, take it as soon as you can. If it is almost time for your next dose, talk to your doctor or health career portals teacher. You may need to miss a dose or take an extra dose. Do not take double or extra doses without advice. Where should I keep my medicine? Keep out of the reach of children. Store at room temperature between 15 and 30 degrees C (59 and 86 degrees F). Protect from light. Keep container tightly closed. Throw away any unused medicine after the expiration date. What should I tell my health care provider before I take this medicine? They need to know if you have any of these conditions: Radha's syndrome diabetes glaucoma heart disease high blood pressure infection (especially a virus infection such as chickenpox, cold sores, or herpes) kidney disease liver disease mental illness myasthenia gravis osteoporosis seizures stomach or intestine problems thyroid disease an unusual or allergic reaction to lactose, prednisone, other medicines, foods, dyes, or preservatives or trying to get breast-feeding What should I watch for while using this medicine? Visit your doctor or health career portals teacher for regular checks on your progress. If you are taking this medicine over a prolonged period, carry an identification card with your name and address, the type and dose of your medicine, and your doctor's name and address. This medicine may increase your risk of getting an infection. Tell your doctor or health career portals teacher if you are around anyone with measles or chickenpox, or if you develop sores or blisters that do not heal properly. If you are going to have surgery, tell your doctor or health career portals teacher that you have taken this medicine within the last twelve months. Ask your doctor or health career portals teacher about your diet. You may need to lower the amount of salt you eat. This medicine may affect blood sugar levels. If you have diabetes, check with your doctor or health career portals teacher before you change your diet or the dose of your diabetic medicine. Hydroxyzine Pamoate Oral capsule What is this medicine? HYDROXYZINE (jimmie DROX i zeen) is an antihistamine. This medicine is used to treat allergy symptoms. It is also used to treat anxiety and tension. This medicine can be used with other medicines to induce sleep before surgery. How should I use this medicine? Take this medicine by mouth with a full glass of water. Follow the directions on the prescription label. You may take this medicine with food or on an empty stomach. Take your medicine at regular intervals. Do not take your medicine more often than directed. Talk to your operations and maintenance supervisor regarding the use of this medicine in children. Special care may be needed. While this drug may be prescribed for children as young as 6 years of age for selected conditions, precautions do apply. Patients over 65 years old may have a stronger reaction and need a smaller dose. What side effects may I notice from receiving this medicine? Side effects that you should report to your doctor or health career portals teacher as soon as possible: fast or irregular heartbeat difficulty passing urine seizures slurred speech or confusion tremor Side effects that usually do not require medical attention (report to your doctor or health career portals teacher if they continue or are bothersome): constipation drowsiness fatigue headache stomach upset What may interact with this medicine? alcohol barbiturate medicines for sleep or seizures medicines for colds, allergies medicines for depression, anxiety, or emotional disturbances medicines for pain medicines for sleep muscle relaxants What if I miss a dose? If you miss a dose, take it as soon as you can. If it is almost time for your next dose, take only that dose. Do not take double or extra doses. Where should I keep my medicine? Keep out of the reach of children. Store at room temperature between 15 and 30 degrees C (59 and 86 degrees F). Keep container tightly closed. Throw away any unused medicine after the expiration date. What should I tell my health care provider before I take this medicine? They need to know if you have any of these conditions: any chronic illness difficulty passing urine glaucoma heart disease kidney disease liver disease lung disease an unusual or allergic reaction to hydroxyzine, cetirizine, other medicines, foods, dyes, or preservatives or trying to get breast-feeding What should I watch for while using this medicine? Tell your doctor or health career portals teacher if your symptoms do not improve. You may get drowsy or dizzy. Do not drive, use machinery, or do anything that needs mental alertness until you know how this medicine affects you. Do not stand or sit up quickly, especially if you are an older patient. This reduces the risk of dizzy or fainting spells. Alcohol may interfere with the effect of this medicine. Avoid alcoholic drinks. Your mouth may get dry. Chewing sugarless gum or sucking hard candy, and drinking plenty of water may help. Contact your doctor if the problem does not go away or is severe. This medicine may cause dry eyes and blurred vision. If you wear contact lenses you may feel some discomfort. Lubricating drops may help. See your eye doctor if the problem does not go away or is severe. If you are receiving skin tests for allergies, tell your doctor you are using this medicine. You have been given the following additional information: Allergic Reaction, Drug HEAD INJURY, No Wake-Up (Adult) Doxycycline Monohydrate Oral tablet Oxycodone Hydrochloride, Acetaminophen Oral tablet Prednisone Oral tablet Hydroxyzine Pamoate Oral capsule (Electronically signed by Duc Mcgraw Dr. 08/09/2016 15:22)
--- NOTE | 2016-08-09 15:22 | ED MED RECONCILIATION SUMMARY ---
Patient: GA RAMACHANDRAN Medication Reconciliation Report [facility] VisitID: [id number] [address] [place] [address] 31y, F Registration Date/Time: 08/08/2016 Weight: 72.5 kg Height/Length: 66 in. BMI: 25.8 ALLERGIES: Hydrocodone The patient's Home Medications are listed below: Not obtained. The source(s) of the original Home Medication information: patient The following Medications were given to the patient in the Emergency Department: SOLU-MEDROL [IVP] IVP 125 mg, administered: 08/08/2016 10:08:00 AM Benadryl [IVP] IVP 50 mg, administered: 08/08/2016 10:09:00 AM Pepcid [IVPB] IVPB bolus 0, then 20 mg 100 mL/hr, administered: 08/08/2016 11:21:00 AM Hydroxyzine [PO] PO 50 mg, administered: 08/08/2016 11:21:00 AM Percocet [PO] PO 1 tab, administered: 08/08/2016 12:25:00 PM The following Medications were prescribed to the patient: Doxycycline 100 mg: Take 1 capsule orally for 10 days. No refill.(disp 20 caps. avoid direct sun exposure while on medication.) -- Duc Mcgraw Dr. Percocet 5 mg/325 mg: take 1 tablet orally every 6 hours as needed for pain. Dispense twelve (12). No refill. Substitution is permissible. -- Duc Mcgraw Dr. Prednisone 50 mg: take 1 orally every day for 5 days. Dispense five (5). No refills. -- Duc Mcgraw Dr. Hydroxyzine 50 mg: take 1 orally every 8 hours as needed for itching. Dispense thirty (30). No refill. -- Duc Mcgraw Dr.
== END 2016-08-08 12:25 | disposition home or self-care (01) ==
LOC: ED SRH 09:25
DX: L27.1 Localized skin eruption due to drugs and medicaments taken internally (principal); T36.1X5A Adverse effect of cephalosporins and other beta-lactam antibiotics, initial encounter; S09.90XA Unspecified injury of head, initial encounter; W06.XXXA Fall from bed, initial encounter; Y93.9 Activity, unspecified; Y92.9 Unspecified place or not applicable; Y99.9 Unspecified external cause status; F17.210 Nicotine dependence, cigarettes, uncomplicated
CPT/HCPCS: 90004; 90047; 93070; 95059